=== PATIENT | male | born 1990 | race African-American/Black ===

== ENCOUNTER → 2016-04-19 | Outpatient (CLI) | payer BC, OTHER ==
[2016-04-17 13:12] VITALS: BMI 20.9
[2016-04-19 14:43] VITALS: BP 128/76; PULSE 87; RESP 16; TEMP 98.1
--- NOTE | 2016-04-19 14:54 | P.CONS ---
History of Present Illness - Reason for Consult Consult date: 04/19/16 - History of Present Illness This is an initial consultation visit for this 25 years old male with a chronic history of low back pain, patient reported that he started feeling low back pain since 2011, after a wrestling incident, and he continued to have low back pain , since 2011, the pain is axial in the low back area, and is not radiated to the lower extremity, and is not associated with any numbness or tingling sensation, he denies any change in the bowel movement. or Urination, and no motor or sensory deficits, he was treated in the past by Dr. Dr. Cortes" Dr. Urias neurologist, and he had multiple injections with only short-term benefit , and he reported that the only medication helped him was Troy , he tried Flexeril and made him sleepy, and he tried Neurontin and he felt that he is very drunk when he took it, for this reason he stopped using both of them and is currently use marijuana to help his pain, and patient's tried physical therapy was some relief, and is currently using a back brace Past Medical History Past Medical History: No Reported History Additional Past Medical History / Comment(s): back pain, carpal tunnel heidy, pain abdomen LLQ- being monitored by dr mireles History of Any Multi-Drug Resistant Organisms: None Reported Past Surgical History: No Surgical Hx Reported Additional Past Anesthesia/Blood Transfusion Reaction / Comm: has never received anesthesia Past Psychological History: No Psychological Hx Reported Smoking Status: Current every day smoker Past Alcohol Use History: Occasional Additional Past Alcohol Use History / Comment(s): smoker since age 22, 3-4 cig/ day Past Drug Use History: None Reported - Past Family History Mother Family Medical History: No Reported History Medications and Allergies Home Medications Medication Instructions Recorded Confirmed Type No Known Home Medications [No 04/17/16 04/19/16 History Known Home Medications] Allergies Allergy/AdvReac Type Severity Reaction Status Date / Time No Known Allergies Allergy Verified 04/19/16 13:48 Physical Exam Vitals: Vital Signs Temp Pulse Resp BP Pulse Ox 04/19/16 13:48 98.1 F 87 16 128/76 97 Social history : smoker , NO ETOH , use marijuana. Review of Systems : 1- Constitutional : no chills , no fever , no night sweats , 2- Ears : no ear discharge , no change in hearing 3-Nose, Mouth ,Throat ; no bleeding gums, no sore throat , no epistaxis , 4-Cardiovascular : Denies chest pain, , no orthopnea , no palpitation 5-Respiratory : Denies cough , no dyspnea , no hemoptysis 6-Gastrointestinal :, no change in bowel habits , no coffee- ground emesis . 7-Genitourinary : No hematuria , no discharge , no incontinence, 8-Musculoskeletal : No gait dysfunction , report low back pain , 9- Neurological : no ataxia , no tremor , no sezure , 10-Psychatric , no suicidal ideation no hallucination 11- Endocrine : no cold intolerence , no polyuria , no polydypsia , 12-Hematologic : no easy bleeding , no easy brusing , 13-Allergic / immunology : no angioedema , no wheezing ,no allergic rhinitis 14-Integumentary : no brttle nails , no change hair / nails , no foot/leg ulcers . Physical Examinations : 1-Constitutional : Cooperative , not in acute distress . 2-HEENT : nech ; supple , no Lymphadenopathy , no Thyromegaly , eyes , no icterus, no photophobia . ENT : , normal oropharynx , no Thrush 3- Respiratory : Chest clear to auscultations Bilaterally , no wheezing . 4- Cardiovascular : regular rate and rhythem , S1 , S2 , no S3 , no S4. 5- Gastrointestinal: abdomen soft no tenderness , no organomegally . 6- Genitourinary : Defferred . 7-Integumentary : No cellulitis , no ulcers , normal skin turgor , no cyanotic . 8- neurologic : Cranial nerve II to XII intact , no focal neurological deffecit 9-psychatric : alert , oriented X 3 , appropriate affect , intact judgment and insight . 10-Lymphatic : no Lymphadenopathy. 11- musculoskeltal: normal gait , . exams of the Lumber spine = moter stegnth lower extremities , thigh and legs 5/5 Right side , 5/5 Left side deep tendon reflexes : normal Knee Jerk , normal ankle Jerk positive lumber facet Loading Test Range of motion of the lumbar spine Flexion 90 degrees, extension 10 degrees strait leg raising test negative bilaterally Fabere test negative bilaterally Results Comments: MRI of the lumbar spine done 10/08/2014= L4 5 and L5-S1 disc desiccation and a grade 1 anterolisthesis at L5-S1 Assessment and Plan Plan: Assessment and plan = - Chronic low back pain secondary to lumbar degenerative disc disease , I discussed with the patient the option of doing, interventional pain management , epidural steroid injection, and diagnostic medial branch block ,if the epidural steroid injection didnot helpe to control his pain , but patient refused to have any interventional pain management, and he reported , that he tried in the past , and it didn't help him, and he won't only to get prescription for Troy, and I explained to the patient that because he was minimal and I cannot give him any prescription for opioid , patient was angry and the left ,because they didn't give him any prescription for Troy.
== END | disposition home or self-care (01) ==
LOC: PNWHC3 13:42
PROVIDERS: ATTEND Specialist
DX: M51.36 Other intervertebral disc degeneration, lumbar region (principal); F12.90 Cannabis use, unspecified, uncomplicated; F17.200 Nicotine dependence, unspecified, uncomplicated; S39.92XA Unspecified injury of lower back, initial encounter; Y93.72 Activity, wrestling
CPT/HCPCS: 99211

== ENCOUNTER 2017-05-14 14:29 | Emergency (ER) | payer BC, OTHER ==
[2017-05-14 14:41] VITALS: BP 129/77; PULSE 94; RESP 18; TEMP 98.6
[2017-05-14] MEDS ORDERED: PROPARACAINE 0.5% OPHTH DROPS 15 ML BTL RIGHT EYE STA (14:47)
--- NOTE | 2017-05-14 15:20 | ED ---
Eye Problem HPI - General Chief complaint: Eye Problems Stated complaint: eye problems Time Seen by Provider: 05/14/17 14:47 Source: patient, RN notes reviewed Mode of arrival: ambulatory Limitations: no limitations - History of Present Illness Initial comments: This is a 26-year-old male who presents to the emergency department with chief complaint of right eye pain. Patient states that 3 days ago he felt like he got something in his eye at work. 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 He states that the eye has been red, painful and itchy since that time. This morning when he woke up his eye was crusted shut. Patient states that he feels like his vision is cloudy. Denies contact use. States he is not up-to-date with his tetanus vaccination. He states that he feels he is coming down with a cold. He denies fevers or chills, abdominal pain, nausea or vomiting. - Related Data Previous Rx's Medication Instructions Recorded Polymyxin B-Trimethoprim Ophth 1 - 2 drops RIGHT EYE Q4H 7 Days 05/14/17 [Polytrim Opthalmic] ml Allergies Allergy/AdvReac Type Severity Reaction Status Date / Time No Known Allergies Allergy Verified 05/14/17 14:41 Review of Systems ROS Statement: Those systems with pertinent positive or pertinent negative responses have been documented in the HPI. ROS Other: All systems not noted in ROS Statement are negative. Past Medical History Past Medical History: No Reported History Additional Past Medical History / Comment(s): back pain, carpal tunnel heidy History of Any Multi-Drug Resistant Organisms: None Reported Past Surgical History: No Surgical Hx Reported Additional Past Anesthesia/Blood Transfusion Reaction / Comment(s): has never received anesthesia Past Psychological History: No Psychological Hx Reported Smoking Status: Former smoker Past Alcohol Use History: Occasional Past Drug Use History: None Reported - Past Family History Mother Family Medical History: No Reported History General Exam - General Exam Comments Initial Comments: General: Awake and alert, well-developed; in no apparent distress. HEENT: Head atraumatic, normocephalic. Pupils are equal, round and reactive to light. Extraocular movements intact. Right conjunctiva is injected. On fluorescein staining there is a pinpoint corneal abrasion at approximately 7:00 in relation to the pupil. No evidence of foreign body. Oropharynx moist without erythema or exudate. Neck: Supple. Normal ROM. Cardiovascular: Regular rate and rhythm. No murmurs, rubs or gallops. Chest symmetrical. Respiratory: Lungs clear to auscultation bilaterally. No wheezes, rales or rhonchi. Normal respiratory effort with no use of accessory muscles. Musculoskeletal: Normal ROM, no tenderness bilateral upper and lower extremities. Ambulating normally. Skin: Evaro, warm and dry without rashes or lesions. Neurological: Alert and oriented x3. CN II-XII grossly intact. Speech is fluent and answers are appropriate. No focal neuro deficits. Psychiatric: Normal mood and affect. No overt signs of depression or anxiety noted. Limitations: no limitations Course Vital Signs 05/14/17 14:39 Temperature 98.6 F Pulse Rate 94 Respiratory 18 Rate Blood Pressure 129/77 O2 Sat by Pulse 97 Oximetry Medical Decision Making - Medical Decision Making This is a 26-year-old male who presents to the emergency department with chief complaint of right red eye. The past 3 days patient has had a foreign body sensation, red and itchy eye. This morning he awoke with crusting of his eyelid. Patient is concerned for foreign body. On fluorescein staining, there is a small corneal abrasion overlying the pupil. No evidence of foreign body. This case was discussed with attending physician, Dr. Black who also evaluated the patient. Patient will be started on antibiotic eyedrops. He was made up-to -date with tetanus vaccination. He is provided follow up with ophthalmology if no improvement or worsening of symptoms. Return parameters were discussed. Patient is in agreement and voices understanding. All questions were answered. Disposition Clinical Impression: Corneal abrasion Disposition: HOME SELF-CARE Condition: Good Instructions: Corneal Abrasion (ED) Additional Instructions: Please take medications as prescribed. Please follow up with Dr. Hernandez, ophthalmology if no improvement or worsening of symptoms. Please follow up with primary care provider within 1-2 days. Return to emergency department if symptoms should worsen or any concerns arise. Prescriptions: Polymyxin B-Trimethoprim Ophth [Polytrim Opthalmic] 1 - 2 drops RIGHT EYE Q4H 7 Days ml Referrals: None,Stated [Primary Care Provider] - 1-2 days Kanu Hernandez MD [STAFF PHYSICIAN] - 1-2 days Time of Disposition: 15:26
== END 2017-05-14 15:45 | disposition home or self-care (01) ==
LOC: EC 14:29
DX: S05.01XA Injury of conjunctiva and corneal abrasion without foreign body, right eye, initial encounter (principal); Z87.891 Personal history of nicotine dependence; X58.XXXA Exposure to other specified factors, initial encounter
CPT/HCPCS: 99283

== ENCOUNTER 2017-05-19 22:10 | Emergency (ER) | payer OTHER ==
[2017-05-19 22:17] VITALS: BP 119/82; PULSE 91; RESP 16; TEMP 97.9
[2017-05-19] MEDS ORDERED: DEXAMETHASONE SOD PHOSPHATE 10 MG/ML 1 ML VIAL IM STA (22:34)
--- NOTE | 2017-05-19 22:37 | ED ---
General Adult HPI - General Chief complaint: Allergic Reaction Stated complaint: right side facial swelling Time Seen by Provider: 05/19/17 22:19 Source: family, RN notes reviewed Mode of arrival: ambulatory Limitations: no limitations - History of Present Illness Initial comments: Patient 26-year-old male who presents emergency room today with a chief complaint of ALLERGIC reaction. He does admit that he was seen here in emergency room last week for corneal abrasion given eyedrops polymyxin B. States he took these for a few days and then noticed that he had some lip swelling. Denies any tongue swelling. Denies any difficulty breathing or swallowing. States he has not taken the eyedrops last 2 days. States he tried some Benadryl for the swelling a few days ago but did not have any improvement. Patient also is that he tried some Zyrtec with no relief. Patient states his lip is still swollen. He is not on any other medications. He denies any other new contacts. Patient denies any recent fever, chills, shortness of breath, chest pain, back pain, abdominal pain, nausea or vomiting, numbness or tingling , headaches or visual changes, or any other complaints. - Related Data Previous Rx's Medication Instructions Recorded Polymyxin B-Trimethoprim Ophth 1 - 2 drops RIGHT EYE Q4H 7 Days 05/14/17 [Polytrim Opthalmic] ml Famotidine [Pepcid] 20 mg PO BID #20 tablet 05/19/17 diphenhydrAMINE [Benadryl] 1 - 2 tab PO Q6HR PRN #30 capsule 05/19/17 predniSONE 50 mg PO DAILY #5 tab 05/19/17 Allergies Allergy/AdvReac Type Severity Reaction Status Date / Time No Known Allergies Allergy Verified 05/14/17 14:41 Review of Systems ROS Statement: Those systems with pertinent positive or pertinent negative responses have been documented in the HPI. ROS Other: All systems not noted in ROS Statement are negative. Past Medical History Past Medical History: No Reported History Additional Past Medical History / Comment(s): back pain, carpal tunnel heidy History of Any Multi-Drug Resistant Organisms: None Reported Past Surgical History: No Surgical Hx Reported Additional Past Anesthesia/Blood Transfusion Reaction / Comment(s): has never received anesthesia Past Psychological History: No Psychological Hx Reported Smoking Status: Never smoker Past Alcohol Use History: None Reported, Occasional Past Drug Use History: None Reported, Marijuana - Past Family History Mother Family Medical History: No Reported History General Exam - General Exam Comments Initial Comments: General: The patient is awake and alert, in no distress, and does not appear acutely ill. Eye: Pupils are equal, round and reactive to light, extra-ocular movements are intact. No nystagmus. There is normal conjunctiva bilaterally. No signs of icterus. Ears, nose, mouth and throat: There are moist mucous membranes and no oral lesions. Patient does have some mild swelling to the upper lip. There is no tongue swelling. There is no difficulty swallowing. Patient tolerating oral secretions Neck: The neck is supple, there is no tenderness or JVD. Cardiovascular: There is a regular rate and rhythm. No murmur, rub or gallop is appreciated. Respiratory: Lungs are clear to auscultation, respirations are non-labored, breath sounds are equal. No wheezes, stridor, rales, or rhonchi. Musculoskeletal: Normal ROM, no tenderness. Strength 5/5. Sensation intact. Pulses equal bilaterally 2+. Neurological: A&O x 3. CN II-XII intact, There are no obvious motor or sensory deficits. Coordination appears grossly intact. Speech is normal. Skin: Skin is warm and dry and no rashes or lesions are noted. Psychiatric: Cooperative, appropriate mood & affect, normal judgment. Limitations: no limitations Course Vital Signs 05/19/17 22:12 Temperature 97.9 F Pulse Rate 91 Respiratory 16 Rate Blood Pressure 119/82 O2 Sat by Pulse 97 Oximetry Medical Decision Making - Medical Decision Making Patient will be given dose of steroids here in emergency room. Treated for an ALLERGIC reaction. Is advised discontinue antibiotic drops that he was given. Patient is doing well there is no complaint at this time. Assault that he does not need further antibiotic drops. Patient advised to use Benadryl, Pepcid also given steroids to go home with. He is advised follow-up the family doctor return here to the emergency room if any symptoms increase worsen. Disposition Clinical Impression: Allergic reaction Disposition: HOME SELF-CARE Condition: Good Instructions: General Allergic Reaction (ED) Additional Instructions: Please use Benadryl one to 2 tabs every 6 hours as discussed. Please use Pepcid twice daily. Please use steroids as prescribed. Please follow-up family doctor or return here to the emergency room if any symptoms increase or worsen or for any other concerns. Prescriptions: diphenhydrAMINE [Benadryl] 1 - 2 tab PO Q6HR PRN #30 capsule PRN Reason: Allergic Reaction Famotidine [Pepcid] 20 mg PO BID #20 tablet predniSONE 50 mg PO DAILY #5 tab Referrals: None,Stated [Primary Care Provider] - 1-2 days Time of Disposition: 22:36
== END 2017-05-19 22:46 | disposition home or self-care (01) ==
LOC: EC 22:10
DX: T78.40XA Allergy, unspecified, initial encounter (principal); R22.0 Localized swelling, mass and lump, head
CPT/HCPCS: 99283; 96372; J1100

== ENCOUNTER 2018-05-23 11:39 | Emergency (ER) | payer OTHER ==
[2018-05-23 11:59] VITALS: BP 115/68; PULSE 72; RESP 18; TEMP 98
--- NOTE | 2018-05-23 12:26 | ED ---
General Adult HPI - General Chief complaint: Allergic Reaction Stated complaint: Facial swelling Time Seen by Provider: 05/23/18 12:07 Source: patient, RN notes reviewed Mode of arrival: ambulatory Limitations: no limitations - History of Present Illness Initial comments: Patient is a pleasant 27-year-old male presenting to the emergency department with concerns for facial swelling. Patient does admit to having some dental discomfort. Facial swelling is left maxillary region. Discomfort is left upper posterior teeth. No fevers. Patient is tolerating oral intake. Patient has also noticed some swelling in the right anterior neck with minimal discomfort. Patient states he has previously seen a dentist and has told he has problem with his wisdom teeth. - Related Data Home Medications Medication Instructions Recorded Confirmed Acetaminophen [Tylenol Extra 500 mg PO TID PRN 05/23/18 05/23/18 Strength] Previous Rx's Medication Instructions Recorded Penicillin V Potassium [Pen Vee K] 500 mg PO QID #40 tablet 05/23/18 Allergies Allergy/AdvReac Type Severity Reaction Status Date / Time No Known Allergies Allergy Verified 05/23/18 12:15 Review of Systems ROS Statement: Those systems with pertinent positive or pertinent negative responses have been documented in the HPI. ROS Other: All systems not noted in ROS Statement are negative. Constitutional: Denies: fever Eyes: Denies: eye pain ENT: Reports: dental pain. Denies: ear pain Respiratory: Denies: cough Cardiovascular: Denies: chest pain Endocrine: Denies: fatigue Gastrointestinal: Denies: abdominal pain Genitourinary: Denies: dysuria Musculoskeletal: Denies: back pain Skin: Denies: rash Neurological: Denies: weakness Past Medical History Past Medical History: No Reported History Additional Past Medical History / Comment(s): back pain, carpal tunnel heidy History of Any Multi-Drug Resistant Organisms: None Reported Past Surgical History: No Surgical Hx Reported Additional Past Anesthesia/Blood Transfusion Reaction / Comment(s): has never received anesthesia Past Psychological History: No Psychological Hx Reported Smoking Status: Never smoker Past Alcohol Use History: None Reported, Occasional Past Drug Use History: None Reported, Marijuana - Past Family History Mother Family Medical History: No Reported History General Exam Limitations: no limitations General appearance: alert, in no apparent distress Head exam: Present: atraumatic Eye exam: Present: normal appearance, PERRL, EOMI ENT exam: Present: other (Mild left maxillary swelling. There is mild swelling left posterior upper gum without obvious abscess visualized.) Neck exam: Present: lymphadenopathy (Right anterior cervical adenopathy.) Respiratory exam: Present: normal lung sounds bilaterally Cardiovascular Exam: Present: regular rate, normal rhythm GI/Abdominal exam: Present: soft. Absent: tenderness Extremities exam: Present: normal inspection Neurological exam: Present: alert Psychiatric exam: Present: normal affect, normal mood Skin exam: Present: normal color Course Vital Signs 05/23/18 11:55 Temperature 98 F Pulse Rate 72 Respiratory 18 Rate Blood Pressure 115/68 O2 Sat by Pulse 97 Oximetry Medical Decision Making - Medical Decision Making With dental pain and swelling patient has presumed dental abscess. Patient states in fact he has had similar symptoms once previously around a year ago. Patient is agreeable to follow-up with his dentist. Disposition Clinical Impression: Dental abscess Disposition: HOME SELF-CARE Condition: Stable Instructions (If sedation given, give patient instructions): Dental Abscess (ED ) Additional Instructions: Please do follow-up with your dentist in the next couple of days for recheck. Return for difficulty breathing, difficulty swallowing, increased swelling, worsening symptoms or other concerns. Prescriptions: Penicillin V Potassium [Pen Vee K] 500 mg PO QID #40 tablet Is patient prescribed a controlled substance at d/c from ED?: No Referrals: Jennifer Lamb MD [Primary Care Provider] - 1-2 days Time of Disposition: 12:41
== END 2018-05-23 13:26 | disposition home or self-care (01) ==
LOC: EC 11:39
DX: K04.7 Periapical abscess without sinus (principal)
CPT/HCPCS: 99283

== ENCOUNTER → 2018-08-21 | Outpatient (CLI) | payer OTHER ==
--- NOTE | 2018-08-21 16:04 | XR ---
Thoracic spine HISTORY: Back pain 3 views of the thoracic spine Thoracic vertebral bodies show preserved height, alignment, and bone mineralization. Disc spaces are maintained. Mild spondylosis present. IMPRESSION: Thoracic spondylosis.
--- NOTE | 2018-08-21 16:09 | XR ---
Lumbosacral spine HISTORY: Back pain 5 views of lumbosacral spine Bilateral spondylolysis present at L5. There is anterolisthesis grade 1 L5-S1. Lumbar vertebral carlitos s show preserved height and bone mineralization. Disc spaces are maintained. IMPRESSION: Spondylolysis and spondylolisthesis L5-S1.
--- NOTE | 2018-08-22 07:39 | US ---
EXAMINATION TYPE: US abdomen complete DATE OF EXAM: 08/21/2018 COMPARISON: NONE CLINICAL HISTORY: R10.12 Left upper quadrant pain. LUQ pain x 1 year. EXAM MEASUREMENTS: Liver Length: 15.0 cm Gallbladder Wall: 0.2 cm CBD: 0.4 cm Spleen: 9.7 cm Right Kidney: 10.0 x 5.5 x 4.2 cm Left Kidney: 9.8 x 5.0 x 5.9 cm Pancreas: Appears wnl. Slightly limited due to gas. Liver: Appears wnl Gallbladder: Appears anechoic. Folds seen. Evidence for sonographic Rangel's sign: No CBD: appears wnl Spleen: appears wnl Right Kidney: No hydronephrosis or masses seen Left Kidney: No hydronephrosis or masses seen Upper IVC: appears wnl Abd Aorta: appears wnl Visualized pancreas appears within normal limits. No aneurysmal change in the aorta. Visualized liver shows no worrisome mass or ductal dilatation. Right kidney shows no hydronephrosis. Common bile duct measures within normal limits. Gallbladder is seen without shadowing gallstones. Left kidney shows n o worrisome mass or hydronephrosis. Spleen is not enlarged. IMPRESSION: No suspicious findings seen to account for patient's symptoms of left upper quadrant pain
== END | disposition home or self-care (01) ==
LOC: RADUSWWP 14:11
PROVIDERS: ATTEND Family Medicine
DX: M43.17 Spondylolisthesis, lumbosacral region (principal); M47.814 Spondylosis without myelopathy or radiculopathy, thoracic region; M47.817 Spondylosis without myelopathy or radiculopathy, lumbosacral region; R10.12 Left upper quadrant pain; G89.29 Other chronic pain
CPT/HCPCS: 72070; 72110; 76700

== ENCOUNTER 2019-05-11 | Emergency (ER) | payer OTHER ==
[2019-05-11 00:20] VITALS: TEMP 99.6
[2019-05-11] MEDS ORDERED: HYDROcodone/APAP 5-325MG 1 EACH TAB PO STA (00:59)
[2019-05-11] MEDS ORDERED: KETOROLAC 30 MG/ML 1 ML VIAL IM STA (00:59)
[2019-05-11] MEDS ORDERED: LIDOCAINE 5% PATCH TOPICAL STA (00:59)
--- NOTE | 2019-05-11 01:21 | XR ---
EXAMINATION TYPE: XR ribs LT w pa chest xray DATE OF EXAM: 05/11/2019 COMPARISON: 03/05/2010 HISTORY: Left rib pain TECHNIQUE: 5 views FINDINGS: Heart and mediastinum are normal. Lungs are clear. Diaphragm is normal. There is no pleural effusion or pneumothorax. Left lung is clear of infiltrate. There is no pleural effusion or pneumoth orax. I see no rib fracture. IMPRESSION: Normal chest. Normal left ribs.
--- NOTE | 2019-05-11 02:02 | ED ---
General Adult HPI - General Chief complaint: Chest Pain Stated complaint: rib injury Time Seen by Provider: 05/11/19 00:35 Source: patient Mode of arrival: ambulatory Limitations: no limitations - History of Present Illness Initial comments: 28 old male patient presents to the emergency department today for evaluation of left rib pain. Patient states that he was wrestling with his brother yesterday and his brother landed on top of him. Patient states he has been having pain to the left ribs. Reports increased pain with deep inspiration and movement. Denies taking any medication for his symptoms. He denies any cough or hemoptysis. Denies any shortness of breath. Denies any other injuries. Patient denies any headache, neck pain, back pain, chest pain, dizziness, weakness, abdominal pain, nausea, vomiting, or difficulties with bowel movements or urination. - Related Data Home Medications Medication Instructions Recorded Confirmed Acetaminophen [Tylenol Extra 500 mg PO TID PRN 05/23/18 05/23/18 Strength] Previous Rx's Medication Instructions Recorded Penicillin V Potassium [Pen Vee K] 500 mg PO QID #40 tablet 05/23/18 Ibuprofen [Motrin] 600 mg PO Q8HR PRN #30 tab 05/11/19 Lidocaine 5% Patch [Lidoderm] 1 patch TOPICAL DAILY #30 patch 05/11/19 Allergies Allergy/AdvReac Type Severity Reaction Status Date / Time No Known Allergies Allergy Verified 05/11/19 00:20 Review of Systems ROS Statement: Those systems with pertinent positive or pertinent negative responses have been documented in the HPI. ROS Other: All systems not noted in ROS Statement are negative. Past Medical History Past Medical History: No Reported History Additional Past Medical History / Comment(s): back pain, carpal tunnel heidy History of Any Multi-Drug Resistant Organisms: None Reported Past Surgical History: No Surgical Hx Reported Additional Past Anesthesia/Blood Transfusion Reaction / Comment(s): has never received anesthesia Past Psychological History: No Psychological Hx Reported Smoking Status: Current every day smoker Past Alcohol Use History: Occasional Past Drug Use History: Marijuana - Past Family History Mother Family Medical History: No Reported History General Exam Limitations: no limitations General appearance: alert, in no apparent distress, other (This is a well- developed, well-nourished adult male patient in no acute distress. Vital signs upon presentation are temperature 99.6F, pulse 99, respirations 20, blood pressure 124/80, pulse ox 99% on room air.) Eye exam: Present: normal appearance, PERRL, EOMI. Absent: scleral icterus, conjunctival injection, periorbital swelling ENT exam: Present: normal exam, normal oropharynx, mucous membranes moist Respiratory exam: Present: normal lung sounds bilaterally, chest wall tenderness (Left lower anterior chest wall tenderness at the midclavicular line), other (No ecchymosis noted over the chest wall). Absent: respiratory distress, wheezes, rales, rhonchi, stridor Cardiovascular Exam: Present: regular rate, normal rhythm, normal heart sounds. Absent: systolic murmur, diastolic murmur, rubs, gallop, clicks GI/Abdominal exam: Present: soft, normal bowel sounds. Absent: distended, tenderness, guarding, rebound, rigid Neurological exam: Present: alert, oriented X3, CN II-XII intact Psychiatric exam: Present: normal affect, normal mood Skin exam: Present: warm, dry, intact, normal color. Absent: rash Course Vital Signs 05/11/19 05/11/19 00:17 02:15 Temperature 99.6 F Pulse Rate 99 79 Respiratory 20 16 Rate Blood Pressure 124/80 122/78 O2 Sat by Pulse 99 98 Oximetry Medical Decision Making - Medical Decision Making 28-year-old male patient presents to the emergency department today for evaluation of left rib pain after an injury yesterday. Physical examination did reveal tenderness over the left lower anterior chest wall the mid clavicular line. No ecchymosis noted. X-ray of the left ribs and chest was obtained and showed no acute abnormalities. Patient does report improvement of symptoms after receiving medications here today. He'll be discharged home to follow-up with his primary care physician for recheck in 1-2 days. Given prescription for Lidoderm patch and ibuprofen. Return parameters were discussed in detail. He verbalizes understanding and agrees with this plan. - Radiology Data Radiology results: report reviewed, image reviewed 5 views of the left ribs and chest are obtained. Report was reviewed in its entirety. Impression by Dr. Oconnell shows normal chest. Normal left ribs. Disposition Clinical Impression: Contusion of rib on left side Disposition: HOME SELF-CARE Condition: Good Instructions (If sedation given, give patient instructions): Rib Contusion (ED) Additional Instructions: Take medications as directed. Apply ice to the painful areas. Press a pillow over the area To cough or sneeze. Follow-up through primary care physician for recheck in 1-2 days. Return to the emergency department immediately for any new, worsening, or concerning symptoms. Prescriptions: Lidocaine 5% Patch [Lidoderm] 1 patch TOPICAL DAILY #30 patch Ibuprofen [Motrin] 600 mg PO Q8HR PRN #30 tab PRN Reason: Pain Is patient prescribed a controlled substance at d/c from ED?: No Referrals: Jennifer Lamb MD [Primary Care Provider] - 1-2 days Time of Disposition: 02:02
[2019-05-11 02:17] VITALS: BP 122/78; PULSE 79; RESP 16
== END 2019-05-11 02:17 | disposition home or self-care (01) ==
LOC: EC
DX: S20.212A Contusion of left front wall of thorax, initial encounter (principal); F17.200 Nicotine dependence, unspecified, uncomplicated; W03.XXXA Other fall on same level due to collision with another person, initial encounter; Y93.83 Activity, rough housing and horseplay
CPT/HCPCS: 71101; 99283; 96372; J1885

== ENCOUNTER 2019-11-12 16:42 | Emergency (ER) | payer BC, OTHER ==
[2019-11-12 16:48] VITALS: RESP 18
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
--- NOTE | 2019-11-12 17:58 | XR ---
EXAMINATION TYPE: XR lumbosacral spine min 4V DATE OF EXAM: 11/12/2019 COMPARISON: 08/21/2018 HISTORY: Back pain TECHNIQUE: 5 views FINDINGS: There is a few millimeter anterior subluxation of L5 in relation S1. There is bilateral L5 spondylolysis.. Sacroiliac joints appear normal. There is no compression fracture. IMPRESSION: There is L5 spondylolysis with minimal first-degree L5-S1 spondylolisthesis unchanged com pared to old exam. No acute bony abnormality.
[2019-11-12] MEDS ORDERED: ACET/COD 300 MG/30 MG STARTER PACK 6 TAB BTL PO STA (18:07)
[2019-11-12 18:23] VITALS: BP 143/86; PULSE 95; TEMP 98.2
== END 2019-11-12 18:25 | disposition home or self-care (01) ==
LOC: EC 16:42
DX: M54.5 Low back pain (principal); F17.200 Nicotine dependence, unspecified, uncomplicated; R20.0 Anesthesia of skin
CPT/HCPCS: 72110; 99283

== ENCOUNTER 2019-11-17 00:02 | Emergency (ER) | payer OTHER, BC ==
[2019-11-17 00:15] VITALS: BP 121/68; PULSE 94; RESP 20; TEMP 99.1
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
== END 2019-11-17 01:16 | disposition home or self-care (01) ==
LOC: EC 00:02
DX: T75.4XXA Electrocution, initial encounter (principal); M54.9 Dorsalgia, unspecified; F17.200 Nicotine dependence, unspecified, uncomplicated
CPT/HCPCS: 93005; 99284

== ENCOUNTER 2020-01-18 15:09 | Emergency (ER) | payer BC, OTHER ==
[2020-01-18 15:17] VITALS: BP 132/87; PULSE 84; RESP 18; TEMP 97.6
[2020-01-18] MEDS ORDERED: metroNIDAZOLE 500 MG TAB PO STA (15:43)
--- NOTE | 2020-01-18 15:57 | ED ---
Male Urogenital HPI - General Chief complaint: Urogenital Stated complaint: MALE Time Seen by Provider: 01/18/20 15:18 Source: patient Mode of arrival: ambulatory Limitations: no limitations - History of Present Illness Initial comments: Patient is a 29-year-old male presenting to the emergency department requesting treatment for an STD. Patient states his girlfriend was treated for Trichomonas a few months ago but he was never treated, she was just retested 2 days ago and it did come back positive again. He is requesting treatment for trichomonas. He states he is having no symptoms, no discharge, no sores, no fever or vomiting. He denies taking any other medications. He has no further complaints at this time. - Related Data Home Medications Medication Instructions Recorded Confirmed Acetaminophen [Tylenol Extra 500 mg PO TID PRN 05/23/18 05/23/18 Strength] Previous Rx's Medication Instructions Recorded Penicillin V Potassium [Pen Vee K] 500 mg PO QID #40 tablet 05/23/18 Ibuprofen [Motrin] 600 mg PO Q8HR PRN #30 tab 05/11/19 Lidocaine 5% Patch [Lidoderm] 1 patch TOPICAL DAILY #30 patch 05/11/19 Ibuprofen [Motrin] 600 mg PO Q8HR PRN #20 tab 11/12/19 Allergies Allergy/AdvReac Type Severity Reaction Status Date / Time No Known Allergies Allergy Verified 01/18/20 15:17 Review of Systems ROS Statement: Those systems with pertinent positive or pertinent negative responses have been documented in the HPI. ROS Other: All systems not noted in ROS Statement are negative. Past Medical History Past Medical History: No Reported History Additional Past Medical History / Comment(s): back pain, carpal tunnel heidy History of Any Multi-Drug Resistant Organisms: None Reported Past Surgical History: No Surgical Hx Reported Additional Past Surgical History / Comment(s): oral surgery-wisdom teeth Additional Past Anesthesia/Blood Transfusion Reaction / Comment(s): has never received anesthesia Past Psychological History: No Psychological Hx Reported Smoking Status: Current every day smoker Past Alcohol Use History: Occasional Past Drug Use History: Marijuana - Past Family History Mother Family Medical History: No Reported History General Exam - General Exam Comments Initial Comments: GENERAL: Patient is well-developed and well-nourished. Patient is nontoxic and in no acute distress. HEAD: Atraumatic, normocephalic. EYES: Pupils equal round and reactive to light, extraocular movements intact, sclera anicteric, conjunctiva are normal. Eyelids were unremarkable. ENT: TMs normal, nares patent, oropharynx clear without exudates. Moist mucous membranes. NECK: Normal range of motion, supple without lymphadenopathy or JVD. LUNGS: Unlabored respirations. Breath sounds clear to auscultation bilaterally and equal. No wheezes rales or rhonchi. HEART: Regular rate and rhythm without murmurs, rubs or gallops. ABDOMEN: Soft, nontender, normoactive bowel sounds. No guarding, no rebound. No masses appreciated. : Deferred MUSCULOSKELETAL: Normal extremities with adequate strength and normal range of motion, no pitting or edema. No clubbing or cyanosis. NEUROLOGICAL: Patient is alert and oriented x 3. Normal speech, normal gait. PSYCH: Normal mood, normal affect. SKIN: Warm, Dry, normal turgor, no rashes or lesions noted. Limitations: no limitations Course Vital Signs 01/18/20 15:15 Temperature 97.6 F Pulse Rate 84 Respiratory 18 Rate Blood Pressure 132/87 O2 Sat by Pulse 99 Oximetry Medical Decision Making - Medical Decision Making Patient is a 29-year-old male here requesting treatment for trichomonas. His girlfriend was the status of positive and he is not treated. He is currently having no symptoms, exam is normal. He is still would like to be tested for gonorrhea and committed as well. I will send his urine and tests for gonorrhea chlamydia, Trichomonas. I will treat him for trichomonas with Flagyl 2 g now today. He is stable for discharge and he is in agreement with this plan of care. He is follow-up with his PCP. Disposition Clinical Impression: Trichomonas exposure Disposition: HOME SELF-CARE Condition: Stable Instructions (If sedation given, give patient instructions): Trichomoniasis (ED) Additional Instructions: Please return to the Emergency Department if symptoms worsen or any other concerns. Refrain from intercourse until both parties are tested. Is patient prescribed a controlled substance at d/c from ED?: No Referrals: Jennifer Lamb MD [Primary Care Provider] - 1-2 days
[2020-01-19 15:07] LABS: C. trachomatis,PCR Negative (Neg,Equiv); Chlamydia trachomatis Source Urine; N. gonorrhoeae,PCR Negative (Neg,Equiv); Neisseria Source Urine
== END 2020-01-18 16:03 | disposition home or self-care (01) ==
LOC: EC 15:09
DX: Z11.3 Encounter for screening for infections with a predominantly sexual mode of transmission (principal); F17.200 Nicotine dependence, unspecified, uncomplicated; Z20.2 Contact with and (suspected) exposure to infections with a predominantly sexual mode of transmission
CPT/HCPCS: 87491; 87591; 99283

== ENCOUNTER 2020-07-21 20:17 | Emergency (ER) | payer BC, OTHER ==
[2020-07-21 20:29] VITALS: BP 111/78; PULSE 91; RESP 18; TEMP 98
[2020-07-21] MEDS ORDERED: CYCLOBENZAPRINE 10MG STARTER 3 TAB BTL PO STA (20:55)
--- NOTE | 2020-07-21 21:00 | ED ---
Back Pain HPI - General Chief Complaint: Back Pain/Injury Stated Complaint: Back and neck pain Time Seen by Provider: 07/21/20 20:35 Source: patient Limitations: no limitations - History of Present Illness Initial Comments: 29yo male prsenting for neck pain. pt states that he woke up with left sided neck pain, he states it feels like he strained something. he states he has pain with rotation of the neck and touch, denies midline pain, falls trauma, IDVU, cancer, fevers. Pt states he also has chronic low back pain but denies any new changes. pt dneies loss of bowel/bladder control, urinary retention, loss of sensation or weakness of the LE. Patient denies URI symptoms, sore throat, chest pain, dsypnea, headaches, nausea, vomiting, anterior neck pain. pt states he also thought he should mention he has a small bump that has been there for month on left side of neck--states he does not believe the two are related. no additional complaints. pt appears well nontoxic in no acute distress. - Related Data Home Medications Medication Instructions Recorded Confirmed Acetaminophen [Tylenol Extra 500 mg PO TID PRN 05/23/18 05/23/18 Strength] Previous Rx's Medication Instructions Recorded Penicillin V Potassium [Pen Vee K] 500 mg PO QID #40 tablet 05/23/18 Ibuprofen [Motrin] 600 mg PO Q8HR PRN #30 tab 05/11/19 Lidocaine 5% Patch [Lidoderm] 1 patch TOPICAL DAILY #30 patch 05/11/19 Ibuprofen [Motrin] 600 mg PO Q8HR PRN #20 tab 11/12/19 Cyclobenzaprine [Flexeril] 10 mg PO TID PRN 4 Days #12 tab 07/21/20 Allergies Allergy/AdvReac Type Severity Reaction Status Date / Time No Known Allergies Allergy Verified 07/21/20 20:27 Review of Systems ROS Statement: Those systems with pertinent positive or pertinent negative responses have been documented in the HPI. ROS Other: All systems not noted in ROS Statement are negative. Past Medical History Past Medical History: No Reported History Additional Past Medical History / Comment(s): back pain, carpal tunnel heidy History of Any Multi-Drug Resistant Organisms: None Reported Past Surgical History: No Surgical Hx Reported Additional Past Surgical History / Comment(s): oral surgery-wisdom teeth Additional Past Anesthesia/Blood Transfusion Reaction / Comment(s): has never received anesthesia Past Psychological History: No Psychological Hx Reported Smoking Status: Current every day smoker Past Alcohol Use History: Occasional Past Drug Use History: Marijuana - Past Family History Mother Family Medical History: No Reported History General Exam - General Exam Comments Initial Comments: General: The patient is awake and alert, in no distress. Eye: +3 mm pupils are equal, round and reactive to light, extra-ocular movements are intact. No nystagmus. There is normal conjunctiva bilaterally. No signs of icterus. Ears, nose, mouth and throat: There are moist mucous membranes and no oral lesions. Neck: The neck is supple, there is no tenderness or JVD. No midline tenderness, paraspinal tension tenderness/left sided, no redness, no nuchal rigidity. there is a small ~1cm mobile lymph node, posterior change (left sided), nontender. Musculoskeletal: Normal ROM, no tenderness. Strength 5/5 of the UE and LE b/l. Sensation intact of the UE and LE b/l. Radial and DP pulses equal bilaterally 2+. Neurological: A&O x 3. CN II-XII intact grossly, There are no obvious motor or sensory deficits. Coordination appears grossly intact. Speech is normal. Skin: Skin is warm and dry and no rashes or lesions are noted. Psychiatric: Cooperative, appropriate mood & affect, normal judgment. Limitations: no limitations Course Vital Signs 07/21/20 20:27 Temperature 98 F Pulse Rate 91 Respiratory 18 Rate Blood Pressure 111/78 O2 Sat by Pulse 97 Oximetry Medical Decision Making - Medical Decision Making Very well appearing 29yo male. cc chronic back pain, new neck pains. appears MSK related. no neurological or vascular deficits appreciated. pt denies falls. treated symptomatically and discharged patient agreeable to this care plan as well as discharge Disposition Clinical Impression: Neck strain, Enlarged lymph node Disposition: HOME SELF-CARE Condition: Good Instructions (If sedation given, give patient instructions): Cervical Strain (ED) Additional Instructions: Please use medication as discussed. Please follow-up with family doctor in the next 2 days, rest, apply heat to the area-- no driving under influence of flexeril or working/operating machinery. Please return to emergency room if the symptoms increase or worsen or for any other concerns. Prescriptions: Cyclobenzaprine [Flexeril] 10 mg PO TID PRN 4 Days #12 tab PRN Reason: Muscle Spasm Is patient prescribed a controlled substance at d/c from ED?: No Referrals: Jennifer Lamb MD [Primary Care Provider] - 1-2 days Time of Disposition: 20:59
== END 2020-07-21 21:06 | disposition home or self-care (01) ==
LOC: EC 20:17
DX: S16.1XXA Strain of muscle, fascia and tendon at neck level, initial encounter (principal); R59.9 Enlarged lymph nodes, unspecified; F17.200 Nicotine dependence, unspecified, uncomplicated; F12.90 Cannabis use, unspecified, uncomplicated; X58.XXXA Exposure to other specified factors, initial encounter
CPT/HCPCS: 99283

== ENCOUNTER 2021-03-16 06:53 | Emergency (ER) | payer OTHER ==
[2021-03-16] MEDS ORDERED: IBUPROFEN 600 MG TAB PO STA (07:18)
[2021-03-16] MEDS ORDERED: ACETAMINOPHEN TAB 500 MG TAB PO STA (07:19)
--- NOTE | 2021-03-16 07:29 | ED ---
General Adult HPI - General Chief complaint: Upper Respiratory Infection Stated complaint: Fever Time Seen by Provider: 03/16/21 07:03 Source: patient Mode of arrival: ambulatory Limitations: no limitations - History of Present Illness Initial comments: This 30-year-old male presents to the emergency department with fever, body aches, cough 2 days. He states he has also experienced chills and sweats. Patient states the symptoms came on all of a sudden 2 days ago after work. Patient has taken Tylenol, DayQuil and NyQuil to help symptoms. Patient states that the symptoms are worse at night. He denies chest pain, hemoptysis, shortness of breath, and loss of taste or smell. - Related Data Home Medications Medication Instructions Recorded Confirmed Acetaminophen [Tylenol Extra 500 mg PO TID PRN 05/23/18 05/23/18 Strength] Previous Rx's Medication Instructions Recorded Penicillin V Potassium [Pen Vee K] 500 mg PO QID #40 tablet 05/23/18 Ibuprofen [Motrin] 600 mg PO Q8HR PRN #30 tab 05/11/19 Lidocaine 5% Patch [Lidoderm] 1 patch TOPICAL DAILY #30 patch 05/11/19 Ibuprofen [Motrin] 600 mg PO Q8HR PRN #20 tab 11/12/19 Cyclobenzaprine [Flexeril] 10 mg PO TID PRN 4 Days #12 tab 07/21/20 Albuterol Inhaler [Ventolin Hfa 1 puff INHALATION RT-QID #8 gm 03/16/21 Inhaler] Allergies Allergy/AdvReac Type Severity Reaction Status Date / Time No Known Allergies Allergy Verified 03/16/21 07:01 Review of Systems ROS Statement: Those systems with pertinent positive or pertinent negative responses have been documented in the HPI. ROS Other: All systems not noted in ROS Statement are negative. Past Medical History Past Medical History: No Reported History Additional Past Medical History / Comment(s): back pain, carpal tunnel heidy History of Any Multi-Drug Resistant Organisms: None Reported Past Surgical History: No Surgical Hx Reported Additional Past Surgical History / Comment(s): oral surgery-wisdom teeth Additional Past Anesthesia/Blood Transfusion Reaction / Comment(s): has never received anesthesia Past Psychological History: No Psychological Hx Reported Smoking Status: Vaper Past Alcohol Use History: Occasional Past Drug Use History: Marijuana - Past Family History Mother Family Medical History: No Reported History General Exam Limitations: no limitations General appearance: alert, in no apparent distress Head exam: Present: atraumatic, normocephalic, normal inspection Eye exam: Present: normal appearance, PERRL, EOMI. Absent: scleral icterus, conjunctival injection, periorbital swelling ENT exam: Present: normal exam, mucous membranes moist Neck exam: Present: normal inspection. Absent: tenderness, meningismus, lymphadenopathy Respiratory exam: Present: normal lung sounds bilaterally. Absent: respiratory distress, wheezes, rales, rhonchi, stridor Cardiovascular Exam: Present: regular rate, normal rhythm, normal heart sounds. Absent: systolic murmur, diastolic murmur, rubs, gallop, clicks GI/Abdominal exam: Present: soft, normal bowel sounds. Absent: distended, tenderness, guarding, rebound, rigid Neurological exam: Present: alert, oriented X3 Psychiatric exam: Present: normal affect, normal mood Skin exam: Present: warm, dry, intact, normal color. Absent: rash Course Vital Signs 03/16/21 06:59 Temperature 101.2 F H Pulse Rate 105 H Respiratory 20 Rate Blood Pressure 127/84 O2 Sat by Pulse 97 Oximetry Medical Decision Making - Medical Decision Making This 22-year-old woman presented to the emergency department with cough, fever, body aches 2 days. COVID-19 rapid test was positive. Informed patient to take sitting, vitamin D, vitamin C, and Tylenol or Motrin as directed. Return precautions discussed. Patient sent home in stable condition. - Lab Data Lab Results 03/16/21 Range/Units 07:36 Coronavirus (PCR) Detected A (Not Detectd) Disposition Clinical Impression: COVID-19 Disposition: HOME SELF-CARE Condition: Stable Instructions (If sedation given, give patient instructions): Coronavirus Disease 2019 (COVID-19) Additional Instructions: Return to emergency department if any symptoms worsen. Take sitting, vitamin D, vitamin C as directed. Take Tylenol or Motrin as directed. Prescriptions: Albuterol Inhaler [Ventolin Hfa Inhaler] 1 puff INHALATION RT-QID #8 gm Is patient prescribed a controlled substance at d/c from ED?: No Referrals: Jennifer Lamb MD [Primary Care Provider] - 1-2 days Decision Time: 08:12
[2021-03-16 08:16] VITALS: BP 125/76; PULSE 89; RESP 18; TEMP 99.4
== END 2021-03-16 08:22 | disposition home or self-care (01) ==
LOC: EC 06:53
DX: U07.1 COVID-19 (principal); F17.290 Nicotine dependence, other tobacco product, uncomplicated; F12.90 Cannabis use, unspecified, uncomplicated; Z72.89 Other problems related to lifestyle
CPT/HCPCS: 87635; 99283

== ENCOUNTER 2021-08-30 21:41 | Emergency (ER) | payer OTHER ==
[2021-08-30] MEDS ORDERED: LIDOCAINE 1% INJ 10MG/ML (5 ML VIAL-PF) SQ ONE (23:12)
[2021-08-30] MEDS ORDERED: DIPH,PERTUS(ACELL)TETVAC-LF 0.5 ML VIAL IM ONE (23:13)
[2021-08-30] MEDS ORDERED: BACITRACIN OINT 1 EACH PACKET TOPICAL ONE (23:26)
--- NOTE | 2021-08-31 00:37 | ED ---
General Adult HPI - General Chief complaint: Wound/Laceration Stated complaint: L hand Laceration Time Seen by Provider: 08/30/21 23:15 Source: patient, RN notes reviewed Mode of arrival: ambulatory Limitations: no limitations - History of Present Illness Initial comments: 30-year-old male presents to the emergency department for evaluation of laceration to the left thumb sustained on a can he opened while making dinner this evening. Bleeding controlled prior to arrival with direct pressure. Patient is uncertain of when he last received a tetanus shot. Denies any loss of sensation, decrease range of motion, or any other injury. - Related Data Home Medications Medication Instructions Recorded Confirmed Acetaminophen [Tylenol Extra 500 mg PO TID PRN 05/23/18 05/23/18 Strength] Previous Rx's Medication Instructions Recorded Penicillin V Potassium [Pen Vee K] 500 mg PO QID #40 tablet 05/23/18 Ibuprofen [Motrin] 600 mg PO Q8HR PRN #30 tab 05/11/19 Lidocaine 5% Patch [Lidoderm] 1 patch TOPICAL DAILY #30 patch 05/11/19 Ibuprofen [Motrin] 600 mg PO Q8HR PRN #20 tab 11/12/19 Cyclobenzaprine [Flexeril] 10 mg PO TID PRN 4 Days #12 tab 07/21/20 Albuterol Inhaler [Ventolin Hfa 1 puff INHALATION RT-QID #8 gm 03/16/21 Inhaler] Allergies Allergy/AdvReac Type Severity Reaction Status Date / Time No Known Allergies Allergy Verified 08/30/21 23:10 Review of Systems ROS Statement: Those systems with pertinent positive or pertinent negative responses have been documented in the HPI. ROS Other: All systems not noted in ROS Statement are negative. Past Medical History Past Medical History: No Reported History Additional Past Medical History / Comment(s): back pain, carpal tunnel heidy History of Any Multi-Drug Resistant Organisms: None Reported Past Surgical History: No Surgical Hx Reported Additional Past Surgical History / Comment(s): oral surgery-wisdom teeth Additional Past Anesthesia/Blood Transfusion Reaction / Comment(s): has never received anesthesia Past Psychological History: No Psychological Hx Reported Smoking Status: Vaper Past Alcohol Use History: Occasional Past Drug Use History: Marijuana - Past Family History Mother Family Medical History: No Reported History General Exam Limitations: no limitations (Well-developed, well-nourished male in no acute distress. Initial temperature 98.2, pulse 75, respiration 16, blood pressure 113/68, pulse ox 97% on room air) General appearance: alert, in no apparent distress Eye exam: Present: normal appearance. Absent: scleral icterus, conjunctival injection, periorbital swelling, periorbital tenderness Neck exam: Present: normal inspection Respiratory exam: Present: normal lung sounds bilaterally. Absent: respiratory distress, wheezes, rales, rhonchi, stridor, chest wall tenderness Cardiovascular Exam: Present: regular rate, normal rhythm, normal heart sounds. Absent: systolic murmur, diastolic murmur, rubs, gallop, clicks GI/Abdominal exam: Present: soft, normal bowel sounds. Absent: distended, tenderness, guarding, rebound, rigid Left Forearm Wrist exam: Present: normal inspection, full ROM. Absent: tenderness, swelling Hand Wrist exam: Present: normal inspection, full ROM, laceration (A 1 cm linear laceration distal phalanx of the first digit, palmar surface.). Absent: tenderness, swelling, deformity Neuro motor exam: Present: wrist extension intact, thumb opposition intact, thumb IP flexion intact, thumb adduction intact, fingers 2-5 abduction intact Vascular: Present: normal capillary refill, radial pulse. Absent: vascular compromise, Pallo Neurological exam: Present: alert, oriented X3, normal gait Psychiatric exam: Present: normal affect, normal mood Skin exam: Present: warm, dry, normal color. Absent: rash Course Vital Signs 08/30/21 08/31/21 23:08 00:42 Temperature 98.2 F 98.5 F Pulse Rate 75 72 Respiratory 16 20 Rate Blood Pressure 113/68 115/70 O2 Sat by Pulse 97 96 Oximetry Procedures - Laceration Laceration #1 Consent Obtained: verbal consent Indication: laceration Site: hand (Distal phalanx, first digit left hand) Size (cm): 1 Description: linear Depth: simple, single layer Anesthetic Used: lidocaine 1% Anesthesia Technique: nerve block Pre-repair: wound explored, irrigated extensively, deep structures intact Type of Sutures: nylon Size of Sutures: 5-0 Number of Sutures: 2 Technique: simple, interrupted Patient Tolerated Procedure: well, no complications Additional Comments: Wound cleansed, anesthetized, and thoroughly irrigated. No foreign body or deep structure injury noted. 2 simple interrupted sutures were placed without dif ficulty. Wound was well approximated. Bacitracin dressing applied. Patient tolerated procedure well with no complications. Wound care instructions were reviewed at length with patient he verbalizes understanding. Medical Decision Making - Medical Decision Making This is a 30-year-old male with no significant past medical history who presents to the emergency department for evaluation of injury to the palmar surface of the distal phalanx of first digit, left hand. Distal sensation is intact. No loss of range of motion. Bleeding controlled prior to arrival. Tetanus shot was updated. 2 simple interrupted sutures were necessary to approximate wound. Instructed to have sutures removed in 7-10 days. Wound care discussed at length with patient; he verbalizes understanding and agrees with this plan. Attending: Efren. Disposition Clinical Impression: Thumb laceration Disposition: HOME SELF-CARE Condition: Stable Instructions (If sedation given, give patient instructions): Care For Your Stitches (ED), Laceration (ED) Additional Instructions: May take Tylenol or Motrin if needed for pain or discomfort. Gently cleanse wound twice daily with mild soap and water. Apply antibiotic ointment to the wound and cover with Band-Aid. Follow-up with your PCP for a wound recheck in 24-48 hours. Have sutures removed in 7-10 days. Return to the emergency department with any new, worsening, or concerning symptoms. Is patient prescribed a controlled substance at d/c from ED?: No Referrals: Jennifer Lamb MD [Primary Care Provider] - 1-2 days Time of Disposition: 00:37
[2021-08-31 00:42] VITALS: BP 115/70; PULSE 72; RESP 20; TEMP 98.5
== END 2021-08-31 00:42 | disposition home or self-care (01) ==
LOC: EC 21:41
DX: S61.012A Laceration without foreign body of left thumb without damage to nail, initial encounter (principal); F17.290 Nicotine dependence, other tobacco product, uncomplicated; Z23 Encounter for immunization; W26.8XXA Contact with other sharp object(s), not elsewhere classified, initial encounter
CPT/HCPCS: 12001; 90471; 90715; 99282